=== PATIENT | male | born 1990 | race Caucasian/White ===

== ENCOUNTER 2020-09-26 02:45 | Emergency (ER) | payer MEDICAID ==
[~2020-09-26] VITALS: Ht 175.3 cm; Wt 75.0 kg
[2020-09-26] MEDS ORDERED: SODIUM CHLORIDE 0.9% 1,000 ML IV ONE (03:30)
[2020-09-26 03:45] LABS: CHLORIDE 110 mEq/L (98-107)
[2020-09-26 03:49] LABS: BASOPHILS % 0.7 % (0.0-2.0); EOSINOPHILS % 9.3 % (0.0-5.0); HEMATOCRIT. 49.4 % (42.0-52.0); HEMOGLOBIN. 17.1 g/dL (14.0-18.0); LYMPHOCYTES % 42.9 % (20.0-50.0); MEAN CORPUSCULAR HEMOGLOBIN 31.6 pg (28.0-32.0); MEAN CORPUSCULAR VOLUME 91.3 fL (80.0-94.0); MEAN PLATELET VOLUME 9.1 fl (7.4-10.4); NEUTROPHILS % 41.1 % (40.0-76.0); PLATELET 312 x1000/uL (130-400); RED BLOOD CELL COUNT 5.41 mill/uL (4.7-6.1); RED CELL DISTRIBUTION WIDTH 13.1 % (11.6-14.6)
[2020-09-26 04:02] LABS: ETHANOL BLOOD 358 mg/dL
[2020-09-26 07:53] VITALS: BP 112/67
== END 2020-09-26 07:58 | disposition home or self-care (01) ==
LOC: ER 02:45
DX: F10.129 Alcohol abuse with intoxication, unspecified (principal); Y90.8 Blood alcohol level of 240 mg/100 ml or more
CPT/HCPCS: 36415; 70450; 80053; 80320; 85025; 99285; J7030; G0480